=== PATIENT | male | born 1970 | race Caucasian/White ===

== ENCOUNTER 2017-03-06 19:05 | Emergency (ER) | payer OTHER ==
[2017-03-06] MEDS ORDERED: predniSONE 20 MG TABLET (UD) PO ONE (19:09)
[2017-03-06] MEDS ORDERED: diazePAM 5 MG TABLET PO ONE (19:09)
[2017-03-06] MEDS ORDERED: KETOROLAC TROMETHAMINE 60 MG/2 ML VIAL IM ONE (19:09)
--- NOTE | 2017-03-06 19:09 | PDOC ---
History of Present Illness - General History Source: Patient Exam Limitations: No Limitations - History of Present Illness Initial Comments: 03/06/17 19:14 The patient is a 46 year old male with a significant past medical history of sciatica (s/p lower back surgery in 2005) who presents to the Emergency Department with left thigh pain for 2 days. The patient describes his pain as acute, accompanied by twitching sensation and exacerbated by movement. The patient notes that when he straightens his hip to walk he is in excruciating pain. He reports that his pain is mildly alleviated by elevating his leg and bending his hip. He reports taking 3 Aleve 1 hour ago with no alleviation of pain. <Ant Starr - Last Filed: 03/06/17 21:32> <Wes Frias - Last Filed: 03/07/17 06:26> - General Chief Complaint: Pain, Acute Stated Complaint: SCIATIC PAIN Time Seen by Provider: 03/06/17 19:08 Past History <Ant Starr - Last Filed: 03/06/17 21:32> <Wes Frias - Last Filed: 03/07/17 06:26> - Past Medical History Allergies/Adverse Reactions: Allergies Allergy/AdvReac Type Severity Reaction Status Date / Time No Known Allergies Allergy Verified 03/06/17 19:07 Home Medications: Ambulatory Orders Diazepam [Valium] 10 mg PO DAILY PRN #12 tablet MDD 20mg 03/06/17 Naproxen 500 mg PO BID PRN #20 tablet. 03/06/17 Oxycodone HCl/Acetaminophen [Percocet 5-325 mg Tablet] 2 tab PO Q6H PRN #20 tablet MDD 8 tabs 03/06/17 Review of Systems - Review of Systems Able to Perform ROS?: Yes Comments:: 03/06/17 19:14 GENERAL/CONSTITUTIONAL: No fever or chills. No weakness. HEAD, EYES, EARS, NOSE AND THROAT: No change in vision. No ear pain or discharge. No sore throat. CARDIOVASCULAR: No chest pain or shortness of breath. RESPIRATORY: No cough, wheezing, or hemoptysis. GASTROINTESTINAL: No nausea, vomiting, diarrhea or constipation. GENITOURINARY: No dysuria, frequency, or change in urination. MUSCULOSKELETAL: (+) Left thigh pain SKIN: No rash NEUROLOGIC: No headache, vertigo, loss of consciousness, or change in strength/ sensation. ENDOCRINE: No increased thirst. No abnormal weight change. HEMATOLOGIC/LYMPHATIC: No anemia, easy bleeding, or history of blood clots. ALLERGIC/IMMUNOLOGIC: No hives or skin allergy. <Ant Starr - Last Filed: 03/06/17 21:32> *Physical Exam - Vital Signs Last Vital Signs Temp Pulse Resp BP Pulse Ox 98.1 F 55 L 18 137/81 100 03/06/17 19:08 03/06/17 19:08 03/06/17 19:08 03/06/17 19:08 03/06/17 19:08 - Physical Exam Comments: 03/06/17 21:33 GENERAL: Awake, alert, and fully oriented, in no acute distress HEAD: No signs of trauma EYES: PERRLA, EOMI, sclera anicteric, conjunctiva clear ENT: Auricles normal inspection, hearing grossly normal, nares patent, oropharynx clear without exudates. Moist mucosa NECK: Normal ROM, supple, no lymphadenopathy, JVD, or masses LUNGS: Breath sounds equal, clear to auscultation bilaterally. No wheezes, and no crackles HEART: Regular rate and rhythm, normal S1 and S2, no murmurs, rubs or gallops ABDOMEN: Soft, nontender, normoactive bowel sounds. No guarding, no rebound. No suprapubic mass EXTREMITIES: Normal range of motion, no edema. No clubbing or cyanosis. No cords, erythema, or tenderness NEUROLOGICAL: Cranial nerves II through XII grossly intact. Normal speech, normal gait. (+) straight leg raise SKIN: Warm, Dry, normal turgor, no rashes or lesions noted. <Ant Starr - Last Filed: 03/06/17 21:32> Medical Decision Making - Medical Decision Making 03/07/17 06:25 sciatica no evidence of motor/ sensory/ bladder/ bowel impairment pain improved modestly after ED mgmt discussed expected disease course and cautions about prescribed medication <Wes Frias - Last Filed: 03/07/17 06:26> *DC/Admit/Observation/Transfer - Attestations Scribe Attestion: 03/06/17 19:15 Documentation prepared by Ant Starr, acting as medical sales representative for Wes Frias MD. <Ant Starr - Last Filed: 03/06/17 21:32> <Wes Frias - Last Filed: 03/07/17 06:26> Diagnosis at time of Disposition: Sciatica Qualifiers: Laterality: unspecified laterality Qualified Code(s): M54.30 - Sciatica, unspecified side - Discharge Dispostion Disposition: HOME Condition at time of disposition: Stable - Prescriptions Prescriptions: Diazepam [Valium] 10 mg PO DAILY PRN #12 tablet MDD 20mg PRN Reason: Pain Naproxen 500 mg PO BID PRN #20 tablet.dr PRN Reason: Pain Oxycodone HCl/Acetaminophen [Percocet 5-325 mg Tablet] 2 tab PO Q6H PRN #20 tablet MDD 8 tabs PRN Reason: Pain - Referrals Referrals: Amado Pedraza MD [Staff Physician] - Call tomorrow - Patient Instructions Printed Discharge Instructions: DI for Sciatica
[2017-03-06 19:13] VITALS: TEMP 98.1; BMI 27.2
[2017-03-06] MEDS ORDERED: predniSONE 20 MG TABLET (UD) ONE (19:15)
[2017-03-06] MEDS ORDERED: KETOROLAC TROMETHAMINE 60 MG/2 ML VIAL ONE (19:15)
[2017-03-06] MEDS ORDERED: diazePAM 5 MG TABLET ONE (19:16)
[2017-03-06 21:08] VITALS: BP 125/65; PULSE 64
== END 2017-03-06 21:49 | disposition home or self-care (01) ==
LOC: FER 19:05
PROC: 3E0233Z Introduction of Anti-inflammatory into Muscle, Percutaneous Approach (ICD-10-PCS; principal; 2017-03-06)
DX: M54.30 Sciatica, unspecified side (principal)
CPT/HCPCS: 99281-25